=== PATIENT | female | born 1960 | race Caucasian/White ===

== ENCOUNTER 2019-05-06 12:53 | Outpatient (RCR) | payer OTHER | END 2019-05-07 | LOC: PT 12:53 | PROVIDERS: ATTEND Specialist | DX: M75.82 Other shoulder lesions, left shoulder (principal); M25.512 Pain in left shoulder; M25.612 Stiffness of left shoulder, not elsewhere classified; M77.12 Lateral epicondylitis, left elbow; M62.81 Muscle weakness (generalized) ==

== ENCOUNTER 2019-05-30 12:57 | Outpatient (RCR) | payer OTHER | END 2019-06-07 | LOC: PT 12:57 | PROVIDERS: ATTEND Specialist | DX: M25.512 Pain in left shoulder (principal); M25.612 Stiffness of left shoulder, not elsewhere classified; M77.8 Other enthesopathies, not elsewhere classified; M77.11 Lateral epicondylitis, right elbow; M62.81 Muscle weakness (generalized) | CPT/HCPCS: 97139 ==

== ENCOUNTER 2019-07-02 08:54 | Outpatient (RCR) | payer OTHER | END 2019-07-07 | LOC: PT 08:54 | PROVIDERS: ATTEND Specialist | DX: M75.82 Other shoulder lesions, left shoulder (principal); M77.12 Lateral epicondylitis, left elbow; M62.81 Muscle weakness (generalized); M25.512 Pain in left shoulder; M25.612 Stiffness of left shoulder, not elsewhere classified ==

== ENCOUNTER → 2022-08-10 | Day surgery (SDC) | payer BC ==
[~2022-08-10] MED LIST: ACIPHEX20 MG PO; ALIVE CALCIUM PO; ATORVASTATIN CA20 MG PO; BENICAR20 MG PO; CALTRATE 600 W1 EACH PO; CINNAMON500 MG PO; GLIPIZIDE5 MG PO; LIDOCAINE HCL 2% LOCAL INJ 5 ML SDV VIAL INJ ONE; METFORMIN HCL500 MG PO; METOPROLOL SUCC50 MG PO; PROPOFOL IV EMULSION 10 MG/ML 20 ML VIAL ONE; [UNRECOGNIZED DRUG - OTHER] TOP
[2022-08-10 09:30] VITALS: BP 143/70
== END | disposition home or self-care (01) ==
LOC: OR 06:41
PROVIDERS: ATTEND Internal Medicine Gastroenterology
DX: Z12.11 Encounter for screening for malignant neoplasm of colon (principal); D12.8 Benign neoplasm of rectum; K57.30 Diverticulosis of large intestine without perforation or abscess without bleeding; K64.8 Other hemorrhoids; E11.9 Type 2 diabetes mellitus without complications; I10 Essential (primary) hypertension; E78.5 Hyperlipidemia, unspecified; Z88.1 Allergy status to other antibiotic agents; Z88.2 Allergy status to sulfonamides; Z01.810 Encounter for preprocedural cardiovascular examination; Z79.84 Long term (current) use of oral hypoglycemic drugs; Z79.899 Other long term (current) drug therapy
CPT/HCPCS: 36415; 45385; 82948; 88305; 93005; J2001; J2704; 45378